=== PATIENT | male | born 1965 | race Caucasian/White ===

== ENCOUNTER 2020-03-12 00:25 | Emergency (ER) | payer MEDICAID, SELFPAY ==
[2020-03-12] VITALS (7 sets, daily range): BP systolic 148–173; BP diastolic 85–102; PULSE 52–71; RESP 16–18; TEMP 36.5–36.7; O2SAT 95–98; BMI 28.1
[2020-03-12 00:46] LABS: POC Glucose,Bedside 96 (70-110)
--- NOTE | 2020-03-12 00:53 | CT_ITS ---
PROCEDURE: CT CERVICAL SPINE WO CON CLINICAL INDICATION: pain Neck pain, dizziness, neck popping COMPARISON: CR XR CHEST 2V from 06/13/2019 TECHNIQUE: Axial images obtained with sagittal and coronal reformats. All CT scans at the facility use one or more dose reduction, viz: automated exposure control, ma/kV adjustment per patient size (including targeted exams where dose is matched to indication, i.e. head), or iterative reconstruction technique. Axial spiral CT scanning performed of the cervical spine beginning at the base of the skull and continuing to the upper T-spine. 3-D multiplanar reconstruction with 3-D manipulation of volumetric data set in image rendering was completed by the radiologist and/or technologist with the supervision of the radiologist on independent workstation. FINDINGS: Normal alignment. No acute fracture or dislocation. No bony canal stenosis. There is mild multilevel degenerative change with minimal endplate osteophytes. There is a small central broad-based annular disc protrusion at C4-C5. Minimal bulging disc C5-C6. Nuchal ligament calcification is present posterior to C3-C4. There is biapical pulmonary fibrotic change with emphysema. IMPRESSION: Mild degenerative change, no acute finding Dictated by: Rey Gordon MD 03/12/2020 06:06 Rey Gordon MD in [facility] 03/12/2020 06:06
--- NOTE | 2020-03-12 00:53 | CT_ITS ---
PROCEDURE: CT HEAD/BRAIN WO CON CLINICAL INDICATION: pain Headache with dizziness, neck pop with pain, presyncope COMPARISON: No exams were available for comparison TECHNIQUE: Axial images obtained. All CT scans at the facility use one or more dose reduction, viz: automated exposure control, ma/kV adjustment per patient size (including targeted exams where dose is matched to indication, i.e. head), or iterative reconstruction technique. FINDINGS: No midline shift, mass effect, intracranial hemorrhage, hydrocephalus, or extra-axial fluid collection is evident. Nonspecific decreased attenuation in the periventricular region at the parietal occipital area and may be related to ischemic gliotic change from microvascular disease. The calvarium has an unremarkable appearance. No mastoid effusion. No sinus air-fluid level. IMPRESSION: The Dictated by: Rey Gordon MD 03/12/2020 05:59 Rey Gordon MD in [facility] 03/12/2020 05:59
--- NOTE | 2020-03-12 00:53 | [facility].EDDIZZ ---
ED Disposition Clinical Impression: Benign paroxysmal positional vertigo Qualifiers: Laterality: unspecified laterality Qualified Code(s): H81.10 - Benign paroxysmal vertigo, unspecified ear Disposition: Home, Self-Care Condition on Discharge: Good Instructions: Vertigo Additional Instructions: call pcp in am for follow up Prescriptions: Meclizine HCl [Antivert 25mg tablet] 25 mg PO TID #10 tab Transmission Status: Pending to [facility] #[id number] Referrals: PCP,No [Primary Care Provider] - - Critical Care Critical Care Time: No Attestation: On 03/12/20, the high probability of a clinically significant, sudden or life threatening deterioration of the following system(s) required my full and direct attention, intervention and personal management. The time I documented below is in addition to time spent performing reported procedures but includes the following listed in this critical care notation. Medical Decision Making - Medical Records Medical records reviewed: Yes: I reviewed the patient's medical records. - [facility] Inquiry Pt receiving controlled substance: No Vital Signs: 03/12/20 00:27 03/12/20 01:00 03/12/20 01:30 Temperature 97.7 F Temperature Source Oral Pulse Rate [Right Radial] 63 58 L 56 L Respiratory Rate 16 17 17 Blood Pressure [Right Arm] 173/102 H 158/92 H 148/87 H Blood Pressure Mean [Right Arm] 125 114 107 Blood Pressure Source [Right Arm] Automatic Cuff Automatic Cuff Automatic Cuff Blood Pressure Position [Right Arm] Supine Supine Supine 02 Sat by Pulse Oximetry 97 95 96 Oxygen Delivery Method Room Air Room Air Room Air 03/12/20 02:30 03/12/20 03:00 Temperature Temperature Source Pulse Rate [Right Radial] 56 L 52 L Respiratory Rate 17 17 Blood Pressure [Right Arm] 148/90 H 151/97 H Blood Pressure Mean [Right Arm] 109 115 Blood Pressure Source [Right Arm] Automatic Cuff Automatic Cuff Blood Pressure Position [Right Arm] Supine Supine 02 Sat by Pulse Oximetry 95 95 Oxygen Delivery Method Room Air Room Air - Lab Data Lab results reviewed: Yes: I reviewed the patient's lab results. Lab Results 03/12/20 00:35: WBC 12.1 H, RBC 5.78, Hgb 17.3, Hct 50.8, MCV 87.8, MCH 30.0, MCHC 34.1, RDW 13.5, Plt Count 311, MPV 8.1, Neut % (Auto) 42.1, Lymph % (Auto) 46.6, [place] % (Auto) 8.6, Eos % (Auto) 1.8, Baso % (Auto) 0.8, Neut # (Auto) 5.1, Lymph # (Auto) 5.6 H, [place] # (Auto) 1.0, Eos # (Auto) 0.2, Baso # (Auto) 0.1 03/12/20 00:35: Sodium 141, Potassium 3.6, Chloride 102, Carbon Dioxide 29, Anion Gap 13.6, BUN 11, Creatinine 0.90, Estimated Creat Clear 111, Estimated GFR 88, Est GFR ( Amer) 106, Glucose 100, Calcium 10.1, Troponin I < 0.01 03/12/20 00:39: POC Glucose 96 Result diagrams: 03/12/20 00:35 03/12/20 00:35 Orders (Tests/Meds): ED MEDICATIONS Generic Name Dose Route Start Last Admin Trade Name Freq PRN Reason Stop Dose Admin Sodium Chloride 1,000 mls @ 999 mls/hr 03/12/20 01:00 03/12/20 01:00 Sod Chlor 0.9% 1000ml Bag IV 03/12/20 02:00 999 mls/hr .[id number] ZAYDA Administration Discontinued Medications Generic Name Dose Route Start Last Admin Trade Name Freq PRN Reason Stop Dose Admin Iopamidol 100 ml 03/12/20 02:32 03/12/20 02:34 Iopamidol-370 (76%);100ml Bottle IV 03/12/20 02:33 100 ml ONCE ONE Administration Ketorolac Tromethamine 30 mg 03/12/20 00:59 03/12/20 01:04 Ketorolac 30mg/Ml Vial IV 03/12/20 01:00 30 mg ONCE ONE Administration Sodium Chloride 10 ml 03/12/20 02:32 03/12/20 02:34 Sodium Chloride 0.9% 10ml Syr (Rad Only) IV 03/12/20 02:33 10 ml ONCE ONE Administration Sodium Chloride 40 ml 03/12/20 02:33 03/12/20 02:34 0.9 % Sodium Chloride 50 Ml Vial IV 03/12/20 02:34 40 ml ONCE ONE Administration ORDERS Category Date Time Status CT angio head Stat Cat Scan 03/12/20 01:[address] angio neck Stat Cat Scan 03/12/20 01:[address] cervical spine wo con Stat Cat Scan
--- NOTE | 2020-03-12 00:56 | ECG_ITS ---
APPROVED REPORT Exam: Resting ECG HR:55 bpm ECG Measurements Heart Rate 55 AXES ID 146 P 28 QRSd 96 QRS 24 QT 430 T 23 QTc 411 Conclusion Sinus bradycardia Otherwise normal ECG Electronically signed by : Darrell Torres, 03/14/2020 11:21:57
--- NOTE | 2020-03-12 01:06 | CT_ITS ---
Procedure: CT ANGIO NECK CLINICAL HISTORY: neck pain Dizziness, neck popping with pain and dizziness, evaluate for dissection COMPARISON: No exams were available for comparison TECHNIQUE: IV Contrast: 100ml Optiray 350 Axial images obtained with sagittal and coronal reformats. All CT scans at the facility use one or more dose reduction, viz: automated exposure control, ma/kV adjustment per patient size (including targeted exams where dose is matched to indication, i.e. head), or iterative reconstruction technique. FINDINGS: The aortic arch and great vessels have an unremarkable appearance. Right carotid: Unremarkable. No evidence stenosis dissection or occlusion. Left carotid: Common carotid has an unremarkable appearance. Minimal amount of calcific plaque is present in the bulb. The internal carotid artery is unremarkable. No stenosis occlusion or dissection. Vertebrals: Unremarkable. No stenosis dissection or occlusion Centrilobular emphysematous changes are present in the lung apices with mild fibrotic change. The IMPRESSION: Negative CTA of the neck. No stenosis dissection or occlusion. Dictated by: Rey Gordon MD 03/12/2020 08:47 Rey Gordon MD in [facility] 03/12/2020 08:47
--- NOTE | 2020-03-12 01:06 | CT_ITS ---
Procedure: CT ANGIO HEAD CLINICAL HISTORY: neck pain Dizziness, neck pain following popping noise in the neck, evaluate for dissection, headache, presyncope COMPARISON: CT CT HEAD/BRAIN WO CON from 03/12/[address] ANGIO NECK from 03/12/2020 TECHNIQUE: IV Contrast: 100ml Optiray 350 Axial images obtained with sagittal and coronal reformats. All CT scans at the facility use one or more dose reduction, viz: automated exposure control, ma/kV adjustment per patient size (including targeted exams where dose is matched to indication, i.e. head), or iterative reconstruction technique. FINDINGS: No aneurysm, AVM, or major intracranial occlusive process is evident. No enhancing lesions are evident. No midline shift or mass effect. No evidence of dural sinus thrombosis. IMPRESSION: Negative CTA of the head Dictated by: Rey Gordon MD 03/12/2020 08:54 Rey Gordon MD in [facility] 03/12/2020 08:54
[2020-03-12 01:08] LABS: Anion Gap 13.6 mEq/L (5-15); Blood Urea Nitrogen 11 mg/dl (9-20); Calcium 10.1 mg/dl (8.4-10.2); Carbon Dioxide 29 mmol/L (22.0-30.0); Chloride 102 mmol/L (98-107); Creatinine Clearance Estimated 111 mL/min (50-200); Estimated Glomerular Filt Rate 88 ml/min (>60); GFR (African American) 106 ML/MIN (>60); Glucose 100 mg/dl (74-100); Potassium 3.6 mmoL/L (3.5-5.1); Sodium 141 mmol/L (136-145)
[2020-03-12 01:19] LABS: Basophils # 0.1 K/mm3 (0-0.2); Basophils % 0.8 % (0.1-2.0); Eosinophils # 0.2 K/mm3 (0.0-0.4); Eosinophils % 1.8 % (0.1-12.0); Hematocrit 50.8 % (42.0-52.0); Hemoglobin 17.3 g/dL (14.1-18.0); Lymphocytes # 5.6 K/mm3 (0.7-4.5); Lymphocytes % 46.6 % (10-50); Mean Corpuscular HGB Conc 34.1 g/dL (31.8-35.4); Mean Corpuscular Volume 87.8 fl (80-94); Mean Platelet Volume 8.1 fl (7.4-10.4); Monocytes % 8.6 % (1.7-9.3); Neutrophils # 5.1 K/mm3 (1.8-7.8); Neutrophils % 42.1 % (37.0-80.0); Platelet Count 311 K/mm3 (142-424); Red Blood Count 5.78 M/mm3 (4.60-6.20); Red Cell Distribution Width 13.5 % (11.5-17.5); White Blood Count 12.1 K/mm3 (4.8-10.8)
[2020-03-12 01:21] LABS: Troponin I < 0.01 ng/ml (0.00-0.034)
[2020-03-12 03:58] LABS: Troponin I < 0.01 ng/ml (0.00-0.034)
== END 2020-03-12 04:11 | disposition home or self-care (01) ==
PROVIDERS: Emergency Provider Emergency Medicine
DX: H81.10 Benign paroxysmal vertigo, unspecified ear (principal); F17.210 Nicotine dependence, cigarettes, uncomplicated
CPT/HCPCS: 70450; 70496; 70498; 72125; 80048; 82962; 84484; 85025; 93005; 96365; 96375; 99284; Q9967